=== PATIENT | female | born 2000 | race Asian ===

== ENCOUNTER 2024-03-04 14:57 | Emergency (ER) | payer BC, OTHER ==
[2024-03-04 15:37] VITALS: BP 107/67; PULSE 94; RESP 20; TEMP 98.2; BMI 32.8
[2024-03-04 17:10] LABS: PH,URINE 5.5 (5.0-8.0); URINE APPEARANCE CLEAR; URINE BILIRUBIN NEGATIVE (NEGATIVE); URINE COLOR YELLOW; URINE GLUCOSE (UA) NEGATIVE (NEGATIVE); URINE KETONE NEGATIVE (NEGATIVE); URINE LEUK ESTERASE NEGATIVE (NEGATIVE); URINE NITRITE NEGATIVE (NEGATIVE); URINE PROTEIN NEGATIVE (NEGATIVE); URINE UROBILINOGEN 0.2 mg/dL (0.2-1.0)
[2024-03-04 17:13] LABS: BASO % 0.6 % (0-2.0); EOS % 3.9 % (0-4.5); HEMATOCRIT 38.9 % (32.4-45.2); HEMOGLOBIN 12.8 GM/dL (10.7-15.3); MCH 25.7 pg (25.7-33.7); MCHC 32.8 g/dl (32.0-36.0); MEAN CELL VOLUME 78.4 fl (80-96); MEAN PLT VOLUME 9.1 fl (7.5-11.1); NEUT % 51.5 % (42.8-82.8); PLATELET COUNT 324 10^3/uL (134-434); RBC 4.96 M/mm3 (3.60-5.2); RDW 13.4 % (11.6-15.6)
[2024-03-04 17:17] LABS: HCG,QUALITATIVE URINE Negative
[2024-03-04 17:25] LABS: POTASSIUM 4.4 mmol/L (3.5-5.1)
[2024-03-04 17:29] LABS: ALBUMIN 3.9 g/dl (3.4-5.0); CALCIUM 9.1 mg/dL (8.5-10.1)
[2024-03-04 17:30] LABS: BLOOD UREA NITROGEN 9.6 mg/dL (7-18)
[2024-03-04 17:34] LABS: BILIRUBIN,TOTAL 0.3 mg/dL (0.2-1); TOT PROT 7.8 g/dl (6.4-8.2)
[2024-03-04] MEDS ORDERED: KETOROLAC TROMETHAMINE 15 MG/ML VIAL ONE (19:25)
[2024-03-04] MEDS: KETOROLAC TROMETHAMINE 15 MG/ML VIAL IVPUSH ONE (19:34)
== END 2024-03-04 19:35 | disposition home or self-care (01) ==
LOC: JER 14:57
PROC: 3E0333Z Introduction of Anti-inflammatory into Peripheral Vein, Percutaneous Approach (ICD-10-PCS; principal; 2024-03-04)
DX: K38.8 Other specified diseases of appendix (principal); R10.9 Unspecified abdominal pain
CPT/HCPCS: 36415; 74177-TC; 80053; 81003; 83690; 84703; 85025; 87077; 87086; 99285-25; Q9967